=== PATIENT | male | born 1960 | race Hispanic/Latino ===

== ENCOUNTER → 2019-05-26 | Outpatient (CLI) | payer OTHER ==
[~2019-05-26] MED LIST: ASPI-25 PO; ATOR40TA71 PO; CALC500T13 PO; CARV25TA PO; FURO40TA5 PO; ISOS60TA4 PO; LISI40TA4 PO; METF-444 PO; POTA10TA14 PO; SPIR25TA6 PO; TAMS0.4C32 PO
== END | disposition home or self-care (01) ==
LOC: RAH 16:19
PROVIDERS: ATTEND Internal Medicine
DX: M85.841 Other specified disorders of bone density and structure, right hand (principal)
CPT/HCPCS: 73120

== ENCOUNTER → 2019-05-27 | Outpatient (CLI) | payer OTHER | LOC: RAH 11:09 | PROVIDERS: ATTEND Internal Medicine | DX: M19.031 Primary osteoarthritis, right wrist (principal) | CPT/HCPCS: 73090; 73110 ==

== ENCOUNTER → 2025-01-13 | Outpatient (CLI) | payer OTHER ==
[~2025-01-13] MED LIST changes: -ISOS60TA4 PO; +ISOS60TA77 PO; -LISI40TA4 PO; +LISI40TA9 PO
--- NOTE | 2025-01-13 10:07 | HMCIMG ---
RIGHT WRIST RADIOGRAPHS - 3 VIEWS INDICATION: Pain COMPARISON: None FINDINGS: AP, lateral, and oblique views. No acute fracture or subluxation identified. Subcentimeter accessory ossicle or spur near the tip of the ulnar styloid process. Scaphoid bone is intact. Ulnar variance is within normal limits. Carpal alignment is well maintained. No radiopaque foreign body noted. IMPRESSION: No evidence for fracture or dislocation.
[2025-01-13 10:57] LABS: URIC ACID 2.5 mg/dL (2.6-7.2)
== END | disposition home or self-care (01) ==
LOC: RAH 09:38
PROVIDERS: ATTEND Internal Medicine
DX: M25.531 Pain in right wrist (principal)
CPT/HCPCS: 36415; 73110; 84550; 85651; 86038; 86140; 86215; 86235; 86431